=== PATIENT | male | born 1970 | race Caucasian/White ===

== ENCOUNTER 2021-08-10 09:31 | Outpatient (REF) | payer BC, SELFPAY ==
--- NOTE | ~2021-08-10 | XR_ITS ---
EXAMINATION: XR BILATERAL KNEES CLINICAL INFORMATION: Pain COMPARISON: None TECHNIQUE: Standing AP view both knees. Lateral and sunrise views of the right FINDINGS: No acute fracture or dislocation. Small tricompartmental marginal osteophytes present about the right knee and medial lateral tibiofemoral compartments of the left knee. Knee joint spaces are preserved. No erosive changes. Small right knee joint effusion. XR/XR knee standing BI IMPRESSION: No acute findings. Mild degenerative changes. Small knee joint effusion.
--- NOTE | ~2021-08-10 | XR_ITS ---
EXAMINATION: XR BILATERAL KNEES CLINICAL INFORMATION: Pain COMPARISON: None TECHNIQUE: Standing AP view both knees. Lateral and sunrise views of the right FINDINGS: No acute fracture or dislocation. Small tricompartmental marginal osteophytes present about the right knee and medial lateral tibiofemoral compartments of the left knee. Knee joint spaces are preserved. No erosive changes. Small right knee joint effusion. XR/XR knee RT 2V IMPRESSION: No acute findings. Mild degenerative changes. Small knee joint effusion.
== END 2021-08-10 09:32 | disposition home or self-care (01) ==
LOC: HO.HOSX 09:31
PROVIDERS: Visit Provider Orthopaedic Surgery
DX: S83.241A Other tear of medial meniscus, current injury, right knee, initial encounter (principal)
CPT/HCPCS: 73560; 73565

== ENCOUNTER → 2021-09-24 14:04 | Outpatient (BNVA) | payer BC, SELFPAY | PROVIDERS: PCP Nurse Practitioner Family; Visit Provider Orthopaedic Surgery ==

== ENCOUNTER → 2022-02-15 12:48 | Outpatient (BNVA) | payer BC, SELFPAY | PROVIDERS: PCP Nurse Practitioner Family; Visit Provider Orthopaedic Surgery | DX: M76.31 Iliotibial band syndrome, right leg (principal) | CPT/HCPCS: 20610; J1100 ==

== ENCOUNTER 2022-05-04 11:00 | Outpatient (RCR) | payer BC, SELFPAY ==
--- NOTE | 2022-03-30 11:55 | MHC.PT.EP ---
[facility] [place] Office [place] Office [place] Office [address] Lavon Wayne [address] [phone] F: [phone] F: [phone] F: [phone] F: [phone] Physical Therapy Plan of Care Date of Evaluation: Date of Surgery: Diagnosis: pain in R knee, ITB syndrome Assessment: 51 y/o M referred to PT with pain in R knee and ITB syndrome. He has had R knee pain for several years with recent worsening resulting in pain and difficulty with walking, standing, stairs, and work duties in a print shop. Examination shows decreased B HS/ ITB length, decreased R LE strength, decreased R patella mobility, normal ROM, pain, and impaired gait pattern. Recommend PT 2x/week for 5 weeks to address impairments, implement HEP, and optimize functional mobility. Frequency and Duration: The patient will be seen 2x/week for 5 weeks Short Term Goals: 3 weeks 1. I with HEP 2. Improve B HS length to 10* 3. Demonstrate SLR 10x with pain < 3/10 Clinical Staff Rn Goals: 5 weeks 1. I with HEP and self management of sx 2. Pt will be able to ambulate > 20 min with pain < 3/10 3/ Improve LEFS to 40/80 (IR 18/80) Treatment Plan: Modalities to reduce pain, spasms and effusion. Manual therapy to restore motion and function. Therapeutic exercise to improve strength and flexibility. Neuromuscular re-education for posture and balance. Therapeutic activities to return to functional activities of daily living. Electronically signed by: Tiffany Blake PT Please sign and return to therapist. Thank you for your referral.
--- NOTE | 2022-06-30 13:50 | MHC.PT.DC ---
[facility] [place] Office [place] Office [place] Office [address] Lavon Wayne [address] [phone] F: [phone] F: [phone] F: [phone] F: [phone] Physical Therapy Discharge Report Diagnosis: pain in R knee, ITB syndrome Date of Surgery: Date of Evaluation: 03/30/22 Date of Discharge: 06/30/22 Treatments to Date: 7 Cancellations to Date: 1 No Shows to Date: 1 Discharge Status: Independent with HEP Patient Elected to Stop Visit Non-compliance Discharge Summary: Pt d/c secondary to not f/u with further visits. His chart was held so that he could start PT for his neck. At this time, will d/c chart Electronically signed by: Tiffany Blake PT Please sign and return to therapist. Thank you for your referral.
== END 2022-06-30 13:50 | disposition home or self-care (01) ==
LOC: HO.PT 11:00
PROVIDERS: PCP Nurse Practitioner Family; Visit Provider Orthopaedic Surgery
DX: M25.561 Pain in right knee (principal); M76.31 Iliotibial band syndrome, right leg
CPT/HCPCS: 97110; 97140; 97161

== ENCOUNTER 2022-05-11 14:19 | Outpatient (REF) | payer BC, SELFPAY ==
--- NOTE | ~2022-05-11 | MR_ITS ---
EXAMINATION: MR KNEE WITHOUT CONTRAST, RIGHT CLINICAL INFORMATION: Medial/lateral pain and swelling with symptoms x1 year. No injury. COMPARISON: None TECHNIQUE: MRI of the knee without contrast was performed using routine sequences on a high-field scanner. FINDINGS: MENISCI: Medial Meniscus: There is a radial tear through the inner third of the medial meniscus occurring 1 cm from the posterior root insertion, associated with inner margin fraying. No meniscal extrusion. Lateral Meniscus: Undersurface fraying is evident at the posterior root. There is abnormal increased intrasubstance signal in the anterior horn at the anterior root insertion with peripheral parameniscal cysts, favored to correspond to an extension of the mucoid degeneration seen within the confluent ACL fibers. No discrete tears. The cluster of parameniscal cysts measures 2.5 x 0.6 x 0.5 cm. LIGAMENTS: Cruciate: There is mucoid degeneration of the ACL with cystic intrasubstance expansion as well as insertional cystic changes and edema signal at the tibial plateau. Cystic intrasubstance signal is also noted at the roof of the intercondylar notch. Collateral: Intact. EXTENSOR MECHANISM: Intact. ARTICULAR CARTILAGE/BONE: As noted above, subcortical cystic changes are evident at the roof of the intercondylar notch and at the tibial spines, corresponding to the attachments of the ACL. Patellofemoral Compartment: Tiny marginal osteophytes. Articular cartilage appears relatively well preserved. Medial Compartment: Tiny marginal osteophytes. There is a ulfb-fyue-vptdlwrey chondral defect at the lateral half of the posterior weightbearing surface measuring 0.8 x 0.5 cm. Minimal chondral thinning and surface irregularity at the medial tibial plateau. Lateral Compartment: Normal. JOINT FLUID AND BURSAE: No significant effusion or Givens's cyst. MR/MR knee RT wo con IMPRESSION: 1. Inner margin radial tear at the posterior horn of the medial meniscus. 2. Mucoid degeneration of the ACL. Abnormal increased intrasubstance signal in the anterior horn of the lateral meniscus and adjacent parameniscal cysts are favored to correspond to intrameniscal extension of the mucoid degeneration from the ACL. 3. Mild medial compartment osteoarthritis with a small 8 x 5 mm high-grade chondral defect.
== END 2022-05-11 14:20 | disposition home or self-care (01) ==
LOC: HO.MRI 14:19
PROVIDERS: Visit Provider Orthopaedic Surgery
DX: S83.241A Other tear of medial meniscus, current injury, right knee, initial encounter (principal)
CPT/HCPCS: 73721

== ENCOUNTER 2022-06-07 15:13 | Outpatient (REF) | payer BC, SELFPAY ==
--- NOTE | ~2022-06-07 | XR_ITS ---
EXAMINATION: XR PELVIS CLINICAL INFORMATION: Pain COMPARISON: None TECHNIQUE: AP view of the pelvis. FINDINGS: Mild bilateral hip osteoarthritis which appears symmetric. No fracture. No focal osseous lesion or suspicious soft tissue calcification. Enthesopathy along the iliac crests. XR/XR pelvis 1-2V IMPRESSION: Mild bilateral hip osteoarthritis.
== END 2022-06-07 15:14 | disposition home or self-care (01) ==
LOC: HO.HOSX 15:13
PROVIDERS: Visit Provider Orthopaedic Surgery
DX: M25.551 Pain in right hip (principal); M25.552 Pain in left hip
CPT/HCPCS: 72170

== ENCOUNTER 2022-06-28 16:27 | Outpatient (REF) | payer BC, SELFPAY ==
--- NOTE | ~2022-06-28 | MR_ITS ---
EXAMINATION: MR LUMBAR SPINE WITHOUT CONTRAST CLINICAL INFORMATION: 51-year-old with self-reported bilateral leg pain. Lumbar radiculopathy. COMPARISON: None TECHNIQUE: MRI of the lumbar spine was obtained using routine sequences without contrast. FINDINGS: Coronal Alignment: Normal. Sagittal Alignment: Normal. Lumbosacral Junction: Normal. 5 mau-fdk-dzpoicc lumbar-type vertebral bodies. Vertebral Bodies: Normal height. Disc Spaces and Endplates: The intervertebral disc space heights are well maintained. There is mild disc desiccation at L5-S1 and minimal disc desiccation at L3-L4 and L4-L5. No significant spondylosis. Endplates appear intact. Spinal Canal: No abnormal developmental findings. Bone Marrow: No significant marrow-replacing process or bone marrow edema. Conus Medullaris: Terminates at T12-L1. Morphology and signal is normal. Intradural Nerve Roots: Within normal limits. Spine Levels: L5-S1: Shallow broad-based central disc protrusion with a small central annular fissure with slight encroachment on the ventral dural sac centrally without nerve root compression or displacement and no significant canal stenosis. There is anlb-gr-qymvklbz left-sided and mild right-sided facet arthrosis with mild bilateral neural foraminal stenosis without neural impingement. L4-L5: Mild right-sided right foraminal/extraforaminal disc protrusion noted with concentric annular fissuring without definite neural impingement. Mild left-sided inferior foraminal disc protrusion without definite neural impingement. Mild facet arthropathy noted on the left. No significant spinal canal stenosis. Moderate bilateral neural foraminal stenosis is noted. L3-L4: Mild right foraminal/extraforaminal disc protrusion without neural impingement. No facet arthrosis or canal stenosis. Mild right-sided neural foraminal narrowing is noted. L2-L3: Normal disc contours. No facet arthrosis, canal or neural foraminal stenosis. L1-L2: Normal disc contours. No facet arthrosis, canal or neuroforaminal stenosis. Paraspinal/Retroperitoneal: The paravertebral soft tissues appear unremarkable. MR/MR lumbar spine wo con IMPRESSION: 1. Broad-based shallow central disc protrusion with central annular fissuring at L5-S1 which contacts the S1 nerve root sleeves bilaterally without nerve root compression or displacement, with facet arthropathy at this level and mild bilateral neural foraminal stenosis. 2. Right lateral foraminal/extraforaminal disc protrusion at L4-L5 and left inferior foraminal disc protrusion at this level with facet arthropathy, with moderate bilateral neural foraminal stenosis without definite neural impingement. 3. Mild right foraminal/extraforaminal disc protrusion at L3-L4 without definite neural impingement and mild right-sided foraminal narrowing at this level.
== END 2022-06-28 16:28 | disposition home or self-care (01) ==
LOC: HO.MRI 16:27
PROVIDERS: Visit Provider Orthopaedic Surgery
DX: M54.16 Radiculopathy, lumbar region (principal)
CPT/HCPCS: 72148

== ENCOUNTER 2022-06-30 09:00 | Outpatient (RCR) | payer BC, SELFPAY | END 2022-07-19 16:24 | disposition home or self-care (01) | LOC: HO.PT 09:00 | PROVIDERS: PCP Nurse Practitioner Family; Visit Provider Nurse Practitioner Family | DX: M54.12 Radiculopathy, cervical region (principal) | CPT/HCPCS: 97035; 97140; 97162; 97530 ==

== ENCOUNTER 2023-09-09 11:07 | Outpatient (AMB) | payer BC, SELFPAY ==
--- NOTE | 2023-09-09 11:11 | A.OFFVIS_ITS ---
Intake Intake Visit Reasons: OV-Rt Meniscus Tear - Discuss Surgery Intake Note: Said is a 53 year old male who presents today for his right knee to discuss surgery. At his last appointment an MRI of his lumbar spine was ordered and was referred to Pain mgmt to evaluate his back. Allergies hydrochlorothiazide Adverse Reaction (Verified 09/09/23 11:13) unk Penicillins Adverse Reaction (Verified 09/09/23 11:13) Unknown HPI OV-Rt Meniscus Tear - Discuss Surgery HPI Details Said is a 53 year old man who returns to discuss his right knee MMT. He complains of pain with activity, especially twisting and standing throughout the day. He returns today to discuss surgery for his right MMT. At his last appointment his symptoms primarily were neurological in nature, primarily a burning pain radiating from his knee down his leg. A lumbar MRI was ordered and he was referred to Pain Management. He has not followed up with them. He states the burning is not worse than prior but the medial sided knee pain is what his primary complaint is. 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 Review of Systems Const All systems reviewed & are unremarkable except as noted in HPI and below Physical Exam Const General: no acute distress, alert and awake Orientation/consciousness: patient oriented x3 HEENT Head: Yes normocephalic and Yes atraumatic Eyes EOM: EOMs intact bilaterally Resp Effort & Inspection: normal respiratory effort and able to speak in complete sentences Cardio Jugular venous distension: no JVD Skin General skin exam: turgor normal Rashes: no rashes Neuro General: patient oriented x3 Extrem Other: There is right knee TTP over the medial compartment with a mildly + Steinmen's. He has full ROM and no effusion Psych Appearance: grossly normal Affect: normal affect Attitude: cooperative Results Reviewed Results Reviewed: I personally reviewed the MR images. MRI from 05/17 : 1. Inner margin radial tear at the posterior horn of the medial meniscus. ? 2. Mucoid degeneration of the ACL. Abnormal increased intrasubstance signal in the anterior horn of the lateral meniscus and adjacent parameniscal cysts are favored to correspond to intrameniscal extension of the mucoid degeneration from the ACL. ? 3. Mild medial compartment osteoarthritis with a small 8 x 5 mm high-grade chondral defect. MRI of lumbar spine 1. Broad-based shallow central disc protrusion with central annular fissuring at L5-S1 which contacts the S1 nerve root sleeves bilaterally without nerve root compression or displacement, with facet arthropathy at this level and mild bilateral neural foraminal stenosis. 2. Right lateral foraminal/extraforaminal disc protrusion at L4-L5 and left inferior foraminal disc protrusion at this level with facet arthropathy, with moderate bilateral neural foraminal stenosis without definite neural impingement. 3. Mild right foraminal/extraforaminal disc protrusion at L3-L4 without definite neural impingement and mild right-sided foraminal narrowing at this level. I personally reviewed relevant radiographs. Radiographs show mild bilateral hip OA. Assessment & Plan Assessment & Plan (1) Lumbar radiculopathy: Code(s): M54.16 - Radiculopathy, lumbar region Plan: MRI c/w stenosis more than impoingement. His symptoms vary from mild to moderate but he does not want to see pain management (2) Tear of medial meniscus of right knee: Code(s): S83.241A - Other tear of medial meniscus, current injury, right knee, initial encounter Plan: MRI from 18 mo ago shows mild chondral thinning and small high grade chondral loss and small MMT. HE feels he has worsened since that mri and his symptoma are not tolerable. I do not think, at this point, that he would benefit from surgical intervention. He feels strongly that he re-injured his knee and it has worsened since 05/17 when the MRI was obtained. He wants to repeat the MRI. I agree with him and ordered the MRI. Plan Scribed for Neo Ferrer MD by Dipesh Pineda, medical record coder, on 09/09/23 at 11:30 AM, EST. Orders: Orders MR knee RT wo con Today S83.241A - Other tear of medial meniscus, current injury, right knee, initial encounter Coding Level of Care Code Est Pt Level 4 (13189) Diagnoses Lumbar radiculopathy M54.16 Tear of medial meniscus of right knee S83.241A
== END 2023-09-09 11:42 | disposition home or self-care (01) ==
PROVIDERS: PCP Nurse Practitioner Family; Visit Provider Orthopaedic Surgery
DX: M54.16 Radiculopathy, lumbar region (principal); S83.241A Other tear of medial meniscus, current injury, right knee, initial encounter
CPT/HCPCS: 99214

== ENCOUNTER → 2023-09-09 11:07 | Outpatient (BNVA) | payer BC, SELFPAY | PROVIDERS: PCP Nurse Practitioner Family; Visit Provider Orthopaedic Surgery ==